=== PATIENT | female | born 1975 | race African-American/Black ===

== ENCOUNTER 2020-05-03 15:00 | Inpatient (IN) | payer OTHER ==
[2020-05-03] MEDS: ELECTROLYTE-148 SOLN 1,000 ML IV SCH (15:45)
[2020-05-03 16:28] VITALS: BMI 41.3
[2020-05-03 17:08] LABS: BASO % 0.2 % (0-2.0); EOS % 1.6 % (0-4.5); HEMATOCRIT 28.7 % (32.4-45.2); HEMOGLOBIN 9.3 GM/dL (10.7-15.3); LYMPH % 14.4 % (8-40); MCH 22.4 pg (25.7-33.7); MCHC 32.5 g/dl (32.0-36.0); MEAN CELL VOLUME 68.9 fl (80-96); MEAN PLT VOLUME 8.5 fl (7.5-11.1); NEUT % 75.8 % (42.8-82.8); PLATELET COUNT 339 K/MM3 (134-434); RBC 4.17 M/mm3 (3.60-5.2); RDW 23.8 % (11.6-15.6); WHITE BLOOD COUNT 11.8 K/mm3 (4.0-10.0)
[2020-05-03 17:15] LABS: INR 0.97 (0.83-1.09); PROTHROMBIN TIME (PATIENT) 11.9 SEC (9.7-13.0)
[2020-05-03] MEDS ORDERED: DINOPROSTONE 10 MG VAGINAL SUPPOSITORY VG ONE (17:31)
[2020-05-03 17:33] LABS: POTASSIUM 4.4 mmol/L (3.5-5.1)
[2020-05-03 17:35] LABS: BLOOD UREA NITROGEN 10.3 mg/dL (7-18)
[2020-05-03 17:39] LABS: CREATININE 0.8 mg/dL (0.55-1.3)
[2020-05-03 17:54] LABS: ANISOCYTOSIS 1+; ROULEAU 1+; TARGET CELLS 1+
[2020-05-03] MEDS ORDERED: FERRIC CARBOXYMALTOSE 750 MG in SODIUM CHLORIDE 250 ML IVPB ONE (18:00)
[2020-05-03 18:32] LABS: HIV INTERPRETATION NEGATIVE (NEGATIVE)
[2020-05-03] MEDS ORDERED: LABETALOL HCL 200 MG TABLET (FP) ONE (20:59)
[2020-05-03] MEDS ORDERED: LABETALOL HCL 100 MG TABLET (FP) ONE (20:59)
[2020-05-03] MEDS: LABETALOL HCL PO SCH (21:00)
[2020-05-03] MEDS ORDERED: LABETALOL HCL 200 MG TABLET (FP) PO SCH (21:01)
[2020-05-03] MEDS ORDERED: levETIRAcetam 500 MG TABLET (FP) PO SCH (21:30)
[2020-05-03] MEDS ORDERED: levETIRAcetam 250 MG TABLET PO SCH (21:55)
[2020-05-03] MEDS: HEPARIN NA (PORCINE) 5,000 UNITS/ML 1ML VIAL SQ SCH (22:00)
[2020-05-04] MEDS ORDERED: NIFEdipine 10 MG CAPSULE (FP) ONE (05:04)
[2020-05-04] MEDS: NIFEdipine E.R 60 MG TABLET PO SCH (05:14)
[2020-05-04] MEDS ORDERED: PENICILLIN G POTASSIUM 20,000,000 (20Mm) UNITS VIAL IVPB ONE (06:32)
[2020-05-04] MEDS ORDERED: PENICILLIN G POTASSIUM 5,000,000 UNIT in DEXTROSE 5%-WATER - 250 ML IVPB ONE (07:45)
[2020-05-04] MEDS ORDERED: OXYTOCIN 30 UNITS in 0.9% NS 30 UNIT/500 ML INFUS.BAG IVPB ONE (08:38)
[2020-05-04] MEDS: OXYTOCIN 30 UNITS in 0.9% NS 30 UNIT/500 ML INFUS.BAG IVPB SCH (09:00)
[2020-05-04] MEDS: DEXTROSE 5%-LACTATED RINGERS 1,000 ML IV SCH (09:00)
[2020-05-04] MEDS ORDERED: LABETALOL HCL 100 MG TABLET (FP) ONE ×2 (10:27→21:56)
[2020-05-04] MEDS ORDERED: LABETALOL HCL 200 MG TABLET (FP) ONE ×2 (10:28→21:56)
[2020-05-04] MEDS: LABETALOL HCL PO SCH ×2 (10:30→22:00)
[2020-05-04] MEDS: HEPARIN NA (PORCINE) 5,000 UNITS/ML 1ML VIAL SQ SCH ×2 (10:35→22:09)
[2020-05-04] MEDS ORDERED: WATER IVPB SCH (11:45)
[2020-05-04] MEDS ORDERED: PENICILLIN POTASSIUM IVPB SCH (11:45)
[2020-05-04] MEDS ORDERED: DEXTROSE 5% IVPB SCH (11:45)
[2020-05-04] MEDS: DEXTROSE 5% IVPB SCH ×3 (12:30→20:30)
[2020-05-04] MEDS: WATER IVPB SCH ×3 (12:30→20:30)
[2020-05-04] MEDS: PENICILLIN POTASSIUM IVPB SCH ×3 (12:30→20:30)
[2020-05-04] MEDS: levETIRAcetam 500 MG TABLET (FP) PO SCH (22:00)
[2020-05-05] MEDS ORDERED: OXYTOCIN 30 UNITS in 0.9% NS 30 UNIT/500 ML INFUS.BAG IVPB ONE ×3 (00:54→19:45)
[2020-05-05] MEDS: DEXTROSE 5% IVPB SCH ×5 (01:30→22:15)
[2020-05-05] MEDS: PENICILLIN POTASSIUM IVPB SCH ×5 (01:30→22:15)
[2020-05-05] MEDS: WATER IVPB SCH ×5 (01:30→22:15)
[2020-05-05] MEDS: NIFEdipine E.R 60 MG TABLET PO SCH (04:58)
[2020-05-05] MEDS: ELECTROLYTE-148 SOLN 1,000 ML IV SCH ×2 (07:00→16:11)
[2020-05-05] MEDS: DEXTROSE 5%-LACTATED RINGERS 1,000 ML IV SCH (07:15)
[2020-05-05] MEDS: OXYTOCIN 30 UNITS in 0.9% NS 30 UNIT/500 ML INFUS.BAG IVPB SCH (08:00)
[2020-05-05] MEDS: MISOPROSTOL 100 MCG TABLET PV SCH ×2 (10:00→14:40)
[2020-05-05] MEDS ORDERED: SODIUM CHLORIDE 500 ML IV STA (10:13)
[2020-05-05] MEDS ORDERED: LABETALOL HCL 200 MG TABLET (FP) ONE (10:14)
[2020-05-05] MEDS ORDERED: LABETALOL HCL 100 MG TABLET (FP) ONE (10:14)
[2020-05-05] MEDS: HEPARIN NA (PORCINE) 5,000 UNITS/ML 1ML VIAL SQ SCH ×2 (10:15→22:00)
[2020-05-05] MEDS: LABETALOL HCL PO SCH ×2 (10:15→22:00)
[2020-05-05] MEDS ORDERED: PENICILLIN POTASSIUM IVPB ONE (14:15)
[2020-05-05] MEDS ORDERED: DEXTROSE 5% IVPB ONE (14:15)
[2020-05-05] MEDS ORDERED: WATER IVPB ONE (14:15)
[2020-05-05] MEDS ORDERED: OXYTOCIN 30 UNITS in 0.9% NS 30 UNIT/500 ML INFUS.BAG IVPB SCH (20:30)
[2020-05-05] MEDS: levETIRAcetam 500 MG TABLET (FP) PO SCH (22:00)
[2020-05-06] MEDS: PENICILLIN POTASSIUM IVPB SCH ×6 (02:15→22:15)
[2020-05-06] MEDS: WATER IVPB SCH ×6 (02:15→22:15)
[2020-05-06] MEDS: DEXTROSE 5% IVPB SCH ×6 (02:15→22:15)
[2020-05-06] MEDS: NIFEdipine E.R 60 MG TABLET PO SCH (05:15)
[2020-05-06] MEDS ORDERED: SODIUM CHLORIDE 500 ML IV STA (05:29)
[2020-05-06 06:24] LABS: BASO % 0.6 % (0-2.0); EOS % 2.1 % (0-4.5); HEMATOCRIT 27.8 % (32.4-45.2); HEMOGLOBIN 9.5 GM/dL (10.7-15.3); LYMPH % 18.7 % (8-40); MCH 23.5 pg (25.7-33.7); MCHC 34.2 g/dl (32.0-36.0); MEAN CELL VOLUME 68.6 fl (80-96); MEAN PLT VOLUME 8.6 fl (7.5-11.1); MONO % 8.7 % (3.8-10.2); NEUT % 69.9 % (42.8-82.8); PLATELET COUNT 283 K/MM3 (134-434); RBC 4.05 M/mm3 (3.60-5.2); RDW 23.5 % (11.6-15.6); WHITE BLOOD COUNT 9.8 K/mm3 (4.0-10.0)
[2020-05-06 06:30] LABS: INR 1.02 (0.83-1.09); PROTHROMBIN TIME (PATIENT) 12.5 SEC (9.7-13.0)
[2020-05-06 06:33] LABS: ACTIVATED PTT 25.9 SECONDS (25.2-36.5)
[2020-05-06 06:48] LABS: ALBUMIN 2.5 g/dl (3.4-5.0); BLOOD UREA NITROGEN 6.7 mg/dL (7-18)
[2020-05-06 06:51] LABS: CREATININE 0.8 mg/dL (0.55-1.3)
[2020-05-06 06:53] LABS: BILIRUBIN,TOTAL 0.3 mg/dL (0.2-1); TOT PROT 6.6 g/dl (6.4-8.2)
[2020-05-06] MEDS ORDERED: OXYTOCIN 30 UNITS in 0.9% NS 30 UNIT/500 ML INFUS.BAG IVPB SCH (08:00)
[2020-05-06 08:37] LABS: BASO % 0.1 % (0-2.0); EOS % 2.3 % (0-4.5); HEMATOCRIT 30.8 % (32.4-45.2); HEMOGLOBIN 10.3 GM/dL (10.7-15.3); LYMPH % 19.1 % (8-40); MCH 23.3 pg (25.7-33.7); MCHC 33.5 g/dl (32.0-36.0); MEAN CELL VOLUME 69.5 fl (80-96); MEAN PLT VOLUME 8.7 fl (7.5-11.1); MONO % 8.3 % (3.8-10.2); NEUT % 70.2 % (42.8-82.8); PLATELET COUNT 329 K/MM3 (134-434); RBC 4.43 M/mm3 (3.60-5.2); RDW 23.8 % (11.6-15.6); WHITE BLOOD COUNT 10.3 K/mm3 (4.0-10.0)
[2020-05-06 08:41] LABS: INR 1.05 (0.83-1.09); PROTHROMBIN TIME (PATIENT) 12.7 SEC (9.7-13.0)
[2020-05-06 08:44] LABS: ACTIVATED PTT 26.2 SECONDS (25.2-36.5)
[2020-05-06 08:57] LABS: POTASSIUM 4.2 mmol/L (3.5-5.1)
[2020-05-06 09:01] LABS: ALBUMIN 2.5 g/dl (3.4-5.0); BLOOD UREA NITROGEN 5.9 mg/dL (7-18); CALCIUM 9.1 mg/dL (8.5-10.1)
[2020-05-06 09:05] LABS: CREATININE 0.9 mg/dL (0.55-1.3)
[2020-05-06 09:06] LABS: BILIRUBIN,TOTAL 0.7 mg/dL (0.2-1); TOT PROT 7.1 g/dl (6.4-8.2)
[2020-05-06] MEDS: LABETALOL HCL PO SCH (09:15)
[2020-05-06] MEDS: HEPARIN NA (PORCINE) 5,000 UNITS/ML 1ML VIAL SQ SCH ×2 (09:40→22:00)
[2020-05-06] MEDS: MISOPROSTOL 100 MCG TABLET PV SCH ×4 (09:59→21:55)
[2020-05-06] MEDS ORDERED: PCA PUMP NR ONE ×2 (15:03→20:24)
[2020-05-06] MEDS ORDERED: FENTANYL/BUPIVACAINE/NS/PF - PCEA - 50 ML DISP.SYRIN EP ONE ×2 (15:03→20:25)
[2020-05-06] MEDS ORDERED: NALOXONE HCL 0.4 MG/ML VIAL IVPUSH PRN (16:06)
[2020-05-06] MEDS: ELECTROLYTE-148 SOLN 1,000 ML IV SCH (16:07)
[2020-05-06] MEDS ORDERED: FENTANYL/BUPIVACAINE/NS/PF - PCEA - 50 ML DISP.SYRIN EP SCH (16:15)
[2020-05-06] MEDS: DEXTROSE 5%-LACTATED RINGERS 1,000 ML IV SCH (21:00)
[2020-05-06] MEDS ORDERED: LABETALOL HCL 100 MG TABLET (FP) ONE (21:37)
[2020-05-06] MEDS ORDERED: LABETALOL HCL 200 MG TABLET (FP) ONE (21:37)
[2020-05-06] MEDS ORDERED: KETOROLAC TROMETHAMINE 30 MG/1 ML VIAL ONE (23:02)
[2020-05-06] MEDS ORDERED: OXYTOCIN 10 UNITS/ML VIAL ONE (23:02)
[2020-05-06] MEDS ORDERED: ceFAZolin SODIUM 1 GM VIAL ONE (23:02)
[2020-05-06] MEDS ORDERED: SODIUM BICARBONATE 8.4% 50 MEQ/50 ML VIAL ONE (23:02)
[2020-05-06] MEDS ORDERED: LIDO 2%/EPI 1:200000 PRESRVFRE (20 ML SDVIAL) ONE (23:04)
[2020-05-06] MEDS ORDERED: DEXAMETHASONE SOD PHOSPHATE 4 MG/1 ML VIAL ONE (23:29)
[2020-05-07] MEDS ORDERED: morphine SULFATE/PF 0.5 MG/ML (2cc Syringe - QUVA) EP ONE
[2020-05-07 00:27] LABS: CORD BASE EXCESS -6.2 mmol/L (0-2); CORD PCO2 47.4 mmHg (30-78); CORD pH 7.265 (7.14-7.44)
[2020-05-07 00:31] LABS: CORD BASE EXCESS -5.8 mmol/L (0-2); CORD HCO3 23.5 mmHg (20-29); CORD PCO2 61.1 mmHg (30-78); CORD pH 7.203 (7.14-7.44)
[2020-05-07] MEDS ORDERED: ONDANSETRON 4 MG/2 ML VIAL IVPUSH PRN (01:12)
[2020-05-07] MEDS ORDERED: ACETAMINOPHEN 1000 MG/100 ML VIAL (NON FORMULARY) IVPB ONE (01:14)
[2020-05-07] MEDS ORDERED: oxyCODONE HCL 5 MG TABLET PO PRN (02:00)
[2020-05-07] MEDS ORDERED: OXYTOCIN 20 UNITS in 0.9% NS 20 UNIT/1,000 ML INFUS.BAG IV ONE (02:14)
[2020-05-07] MEDS: LABETALOL HCL PO SCH ×3 (02:26→22:19)
[2020-05-07] MEDS: levETIRAcetam 500 MG TABLET (FP) PO SCH ×2 (02:26→22:19)
[2020-05-07] MEDS: WATER IVPB SCH ×2 (03:21→06:18)
[2020-05-07] MEDS: DEXTROSE 5% IVPB SCH ×2 (03:21→06:18)
[2020-05-07] MEDS: PENICILLIN POTASSIUM IVPB SCH ×2 (03:21→06:18)
[2020-05-07] MEDS: NIFEdipine E.R 60 MG TABLET PO SCH (06:32)
[2020-05-07] MEDS: IBUPROFEN 600 MG TABLET (FP) PO PRN ×3 (09:46→18:25)
[2020-05-07] MEDS: SIMETHICONE 80 MG TAB.CHEW (FP) PO PRN ×3 (09:46→18:25)
[2020-05-07] MEDS: HEPARIN NA (PORCINE) 5,000 UNITS/ML 1ML VIAL SQ SCH ×2 (10:00→22:19)
[2020-05-08] MEDS ORDERED: BISACODYL 10 MG SUPP.RECT RC PRN (02:00)
[2020-05-08] MEDS: NIFEdipine E.R 60 MG TABLET PO SCH (05:40)
[2020-05-08] MEDS: IBUPROFEN 600 MG TABLET (FP) PO PRN ×3 (05:41→21:58)
[2020-05-08] MEDS: SIMETHICONE 80 MG TAB.CHEW (FP) PO PRN ×3 (05:41→21:58)
[2020-05-08 06:32] LABS: BASO % 0.2 % (0-2.0); EOS % 1.4 % (0-4.5); HEMATOCRIT 23.2 % (32.4-45.2); HEMOGLOBIN 7.5 GM/dL (10.7-15.3); LYMPH % 17.4 % (8-40); MCH 22.8 pg (25.7-33.7); MCHC 32.5 g/dl (32.0-36.0); MEAN CELL VOLUME 70.4 fl (80-96); MEAN PLT VOLUME 6.9 fl (7.5-11.1); MONO % 8.3 % (3.8-10.2); NEUT % 72.7 % (42.8-82.8); PLATELET COUNT 276 K/MM3 (134-434); RDW 23.5 % (11.6-15.6); WHITE BLOOD COUNT 13.2 K/mm3 (4.0-10.0)
[2020-05-08] MEDS: LABETALOL HCL PO SCH (09:41)
[2020-05-08] MEDS: HEPARIN NA (PORCINE) 5,000 UNITS/ML 1ML VIAL SQ SCH ×2 (09:46→21:46)
[2020-05-08 10:53] LABS: ANISOCYTOSIS 1+; MACROCYTOSIS 0; PLATELET ESTIMATE NORMAL; TARGET CELLS 1+
[2020-05-08] MEDS: levETIRAcetam 500 MG TABLET (FP) PO SCH (21:46)
[2020-05-09] MEDS: NIFEdipine E.R 60 MG TABLET PO SCH (05:18)
[2020-05-09 05:20] VITALS: BP 119/65
[2020-05-09] MEDS ORDERED: levETIRAcetam 500 MG TABLET (FP) PO SCH ×2 (10:00→22:00)
[2020-05-09 10:31] VITALS: PULSE 103; TEMP 97.8
== END 2020-05-09 10:15 | disposition home or self-care (01) | DRG 788 ==
LOC: JLDR 15:00 → J3W 05-07 02:40
PROVIDERS: ADMIT Obstetrics & Gynecology Maternal & Fetal Medicine; ATTEND Obstetrics & Gynecology Maternal & Fetal Medicine
PROC: 10D00Z1 Extraction of Products of Conception, Low, Open Approach (ICD-10-PCS; principal; 2020-05-06)
PROC: 0DNW0ZZ Release Peritoneum, Open Approach (ICD-10-PCS; 2020-05-06)
DX: O13.4 Gestational [pregnancy-induced] hypertension without significant proteinuria, complicating childbirth (principal); O62.0 Primary inadequate contractions; O62.1 Secondary uterine inertia; O34.13 Maternal care for benign tumor of corpus uteri, third trimester; O26.893 Other specified pregnancy related conditions, third trimester; G40.909 Epilepsy, unspecified, not intractable, without status epilepticus; O99.213 Obesity complicating pregnancy, third trimester; Z3A.36 36 weeks gestation of pregnancy; Z37.0 Single live birth; K66.0 Peritoneal adhesions (postprocedural) (postinfection)
CPT/HCPCS: 36415; 36600; 80048; 80053; 82803; 85025; 85610; 85730; 86780; 86850; 86900; 86901; 87389; 88307-TC; C9803; J1439; J1644; U0003

== ENCOUNTER 2021-11-07 10:15 | Day surgery (SDC) | payer OTHER ==
[2021-10-31 14:51] VITALS: BMI 33.9
[2021-11-07] MEDS ORDERED: MIDAZOLAM HCL 2 MG/2 ML SINGLE DOSE VIAL ONE (10:27)
[2021-11-07] MEDS ORDERED: DEXAMETHASONE SOD PHOSPHATE 4 MG/1 ML VIAL ONE ×2 (10:28→12:06)
[2021-11-07] MEDS ORDERED: ONDANSETRON 4 MG/2 ML VIAL ONE (12:06)
[2021-11-07] MEDS ORDERED: PROPOFOL 20 ML ONE ×2 (12:26)
[2021-11-07 13:19] VITALS: BP 144/78; TEMP 98.7
[2021-11-07 13:50] VITALS: PULSE 75
== END 2021-11-07 13:40 | disposition home or self-care (01) ==
LOC: FASU 10:15
PROVIDERS: ATTEND Orthopaedic Surgery Hand Surgery
PROC: 0HQQXZZ Repair Finger Nail, External Approach (ICD-10-PCS; 2021-11-07)
PROC: 0HBQXZZ Excision of Finger Nail, External Approach (ICD-10-PCS; 2021-11-07)
PROC: 0JBK0ZZ Excision of Left Hand Subcutaneous Tissue and Fascia, Open Approach (ICD-10-PCS; principal; 2021-11-07 12:04)
DX: D21.12 Benign neoplasm of connective and other soft tissue of left upper limb, including shoulder (principal)
CPT/HCPCS: 84703; 88300-TC; 94760

== ENCOUNTER 2023-03-26 10:52 | Day surgery (SDC) | payer OTHER ==
[2023-03-25 14:05] VITALS: BMI 29.9
[2023-03-26] MEDS ORDERED: LIDOCAINE HCL/PF 2% SDV 5ML VIAL ONE (11:10)
[2023-03-26] MEDS ORDERED: MIDAZOLAM HCL 2 MG/2 ML SINGLE DOSE VIAL ONE (11:11)
[2023-03-26] MEDS ORDERED: PROPOFOL 20 ML ONE (11:11)
[2023-03-26] MEDS ORDERED: KETOROLAC TROMETHAMINE 30 MG/1 ML VIAL ONE (12:07)
[2023-03-26] MEDS ORDERED: ONDANSETRON 4 MG/2 ML VIAL ONE (12:07)
[2023-03-26] MEDS ORDERED: DEXAMETHASONE SOD PHOSPHATE 4 MG/1 ML VIAL ONE (12:07)
[2023-03-26] MEDS ORDERED: oxyCODONE HCL 5 MG TABLET PO PRN ×2 (12:49)
[2023-03-26] MEDS ORDERED: ONDANSETRON 4 MG/2 ML VIAL IVPUSH PRN (12:49)
[2023-03-26] MEDS ORDERED: PROMETHAZINE HCL 25 MG/1 ML VIAL IVPB PRN (12:49)
[2023-03-26] MEDS ORDERED: ACETAMINOPHEN 1000 MG/100 ML BAG IVPB ONE (12:50)
[2023-03-26] MEDS ORDERED: LACTATED RINGERS SOLUTION 1,000 ML IV SCH (13:00)
[2023-03-26 13:06] VITALS: TEMP 97.7
[2023-03-26 13:19] VITALS: RESP 18
[2023-03-26] MEDS ORDERED: oxyCODONE HCL 5 MG TABLET ONE (13:51)
[2023-03-26] MEDS ORDERED: oxyCODONE HCL 5 MG TABLET PO ONE (13:54)
[2023-03-26 14:06] VITALS: BP 132/74; PULSE 74
== END 2023-03-26 15:15 | disposition home or self-care (01) ==
LOC: FASU 10:52
PROVIDERS: ATTEND Orthopaedic Surgery Hand Surgery
PROC: 0JBK0ZX Excision of Left Hand Subcutaneous Tissue and Fascia, Open Approach, Diagnostic (ICD-10-PCS; principal; 2023-03-26 12:17)
DX: D21.12 Benign neoplasm of connective and other soft tissue of left upper limb, including shoulder (principal)
CPT/HCPCS: 81025; 88305-TC; 94760